=== PATIENT | male | born 1990 | race Caucasian/White ===

== ENCOUNTER 2018-12-12 05:33 | Day surgery (SDC) | payer OTHER ==
[2018-12-11 08:11] VITALS: BMI 33.2
[2018-12-12] MEDS ORDERED: HYDROmorphone 0.5 MG/0.5 ML SYRINGE ONE ×2 (06:28→06:29)
[2018-12-12] MEDS ORDERED: Fentanyl 100 MCG/2 ML VIAL ONE ×3 (06:28→09:34)
[2018-12-12 06:39] LABS: #Basophils 0.1 thou/uL (0.0-0.2); #Eosinphils 0.1 thou/uL (0.0-0.7); #Lymphocytes 1.6 thou/uL (1.20-3.40); #Monocytes 0.5 thou/uL (0.11-0.59); #Neutrophils 2.7 thou/uL (1.40-6.50); %Basophils 1.1 % (0.0-1.0); %Eosinophils 2.2 % (0.0-10.0); %Lymphocytes 33.2 % (21.0-51.0); %Monocytes 9.1 % (0.0-10.0); %Neutrophils 54.4 % (42.0-75.0); Hemoglobin 15.9 g/dL (14.0-18.0); Mean Corpuscular HGB CONC 34.4 g/dL (32.0-36.0); Mean Corpuscular Hemoglobin 33.1 pg (27.0-31.0); Mean Corpuscular Volume 96.3 fL (78.0-98.0); Mean Platelet Volume 7.1 fL (7.4-10.4); Platelet Count 186 thou/uL (130-400); RBC Distribution Width 11.3 % (11.5-14.5); Red Blood Cell (RBC) Count 4.81 mill/uL (4.70-6.10); White Blood Cell (WBC) Count 4.9 thou/uL (4.8-10.8)
[2018-12-12] MEDS ORDERED: Midazolam HCl 2 mg/2 ml Vial ONE (06:50)
[2018-12-12] MEDS ORDERED: Bupivacaine PF 0.5% 30 ML VIAL ONE (08:14)
[2018-12-12] MEDS ORDERED: HYDROcodone/Acetaminophen 5/325 mg Tablet ONE (10:38)
--- NOTE | 2018-12-12 12:23 | EKG ---
Test Reason : PREOP Blood Pressure : / mmHG Vent. Rate : 068 BPM Atrial Rate : 068 BPM P-R Int : 196 ms QRS Dur : 102 ms QT Int : 380 ms P-R-T Axes : 052 034 024 degrees QTc Int : 404 ms Normal sinus rhythm Normal ECG No previous ECGs available Confirmed by DR. Chris VANCE (3) on 12/12/2018 12:23:31 PM Referred By: RAVI Confirmed By:DR. Chris VANCE
[2018-12-12] MEDS ORDERED: Dexamethasone 20 MG/5 ML VIAL ONE (15:29)
[2018-12-12] MEDS ORDERED: Lidocaine 1% PF 5 ML VIAL ONE (15:29)
[2018-12-12] MEDS ORDERED: Ondansetron PF 4 MG/2 ML Vial ONE (15:29)
[2018-12-12] MEDS ORDERED: PROPOFOL 200 MG/20 ML VIAL ONE (15:29)
[2018-12-12] MEDS ORDERED: Ketorolac Tromethamine 30 MG/ML VIAL ONE (15:29)
--- NOTE | 2018-12-13 09:30 | OP ---
DATE OF PROCEDURE: 12/12/2018 PREOPERATIVE DIAGNOSES: 1. Right distal pole fracture. 2. Patellar tendon avulsion, distal patella. POSTOPERATIVE DIAGNOSES: 1. Right distal pole fracture. 2. Patellar tendon avulsion, distal patella. PROCEDURES PERFORMED: Open reduction and suture repair through drill holes of patellar tendon avulsion/distal pole fracture. SOLUTION SPEC: Mikie Duckworth PA-C. ANESTHESIOLOGIST: Pratik Gonzalez MD ANESTHESIA: The patient received LMA with 30 mL of Marcaine 0.5% plain. TOURNIQUET TIME: 59 minutes. ANTIBIOTICS: Ancef. COMPLICATIONS: None. HISTORY OF PRESENT ILLNESS: Mr. Ramirez is a 28-year-old male, who sustained an injury to his knee on 11/14 in [place]. The patient presented to my clinic on 12/06/2018. 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 I discussed that he had severe significant quad atrophy. I did not feel that the femoral block would be appropriate because I was concerned about the inability to recover his quad tone over time. I felt the patient would require a repair of the tendon through drill tunnels and suture repair for fixation and extension mobilizer followed by rehab in range of motion. I discussed given the patient's age, size of tear, chronicity of injury, concerned about its repair, his range of motion, and possible postoperative stiffness. I discussed risks and benefits of surgery include pain, scar, bleeding, infection, damage to vital structures, decreased range of motion and strength, need for further surgery, loss of life or limb. The patient understands risks and benefits and elected to proceed. DESCRIPTION OF PROCEDURE: Time-out was performed designating the patient's right lower extremity as operative site based on site, consents, and marking. After time-out, the patient had a midline incision down, came down through the patient 's bursa, exposed, came down on top of the tendon as well as the infrapatellar tendon, which had a small avulsion fracture as well as at the patella. We created gutters medially and laterally to find the retinaculum for exposure. After cleaning off that, we exposed there was injury of the tendon that was kind of pulled upon itself and rotated in, scarred into the fat pad. The fat pad was acting as a potential blocking, so we took the superior aspect and the inferior aspect the fat pad to help with apposition of the tendon to itself. We cleared off the tendon. We used a sharp blade and curette to both curette bone off the patella and scar off the patella to have a healthy bleeding surface. We did the same thing to the scar plane of the tendon to help with re-insertion. We then used a #5 Ethibond running in a [place]ack[place] locking loops, up and down for a total of 4 suture limbs. We took a drill bit under fluoroscopic guidance and drilled 3 holes about a centimeter apart from one another linearly on AP and lateral radiographs that showed that we were in the bone. We were drilling those, passing Suture Lasso with suture passer with a passing stitch. Upon completion of this, we passed from lateral to medial 1-1 limbs through. We then tunneled underneath the tendon to help with the suture being away and not strangulating in the superior aspect of the tendon that insert as well as bearing the knots. We then put the patient in full extension, tied our knots in position. We then cut the stitches, closed over them with #1 Vicryl, used #2 Vicryl to close with [id number] stitches in the entire retinaculum as well as oversewing the tendon repair that we have already performed. We felt we had a good overall seal, and inside the seal, we then closed the fat pad and scar layer over with 0 Vicryl, closed the subcu with 2-0 and corbin for skin. The patient will be in a knee immobilizer with the knee straight for the next 4 weeks. Work on knee extension activities. The patient will ambulate with the brace in place. We will see him back in 10 to 14 days to remove it. We will keep him 2 more weeks in the brace for a total of 4 weeks and then we will begin range of motion. Job ID: [id number] [facility]
== END 2018-12-12 12:15 | disposition home or self-care (01) ==
LOC: SDC 05:33
PROVIDERS: ATTEND Orthopaedic Surgery
PROC: 0LQQ0ZZ Repair Right Knee Tendon, Open Approach (ICD-10-PCS; principal; 2018-12-12)
DX: S76.191A Other specified injury of right quadriceps muscle, fascia and tendon, initial encounter (principal); S82.001A Unspecified fracture of right patella, initial encounter for closed fracture; I10 Essential (primary) hypertension; M19.90 Unspecified osteoarthritis, unspecified site; Z79.899 Other long term (current) drug therapy; Z87.891 Personal history of nicotine dependence; W18.42XA Slipping, tripping and stumbling without falling due to stepping into hole or opening, initial encounter
CPT/HCPCS: 36415; 76000; 85025; 93005; 93010; J0690; J1100; J1170; J1885; J2001; J2250; J2405; J2704; J3010; S0020

== ENCOUNTER 2019-08-06 07:41 | Outpatient (CLI) | payer OTHER ==
--- NOTE | 2019-08-06 09:44 | MRI ---
MRI OF RIGHT KNEE PERFORMED WITHOUT CONTRAST ENHANCEMENT: HISTORY: The patient states they had patellar tendon repair in December. Patella is now high in position. COMPARISON: None. FINDINGS: He anterior as well as posterior cruciate ligaments are intact. There is a somewhat prominent ligame nt of Bejarano incidentally noted. The medial and lateral menisci are normal in shape and appearance. The medial as well as lateral collateral ligaments are intact. Medial collateral ligament is slightl y thickened in appearance which may be the sequelae of an older injury. He patellar articular cartilage is intact. There is increased signal change near the medial patellar retinacular attachment on the patella. The lateral patellar retinaculum has a more normal appearanc e. There is a markedly abnormal thickened amorphous appearance to the proximal half of the patellar tendon with a high-grade possibly complete tear of the patellar tendon. There may be a few wispy fib ers on the medial and lateral edges of the patellar tendon that may still be intact, but there is flu id density interposed between the majority of the patellar tendon and the inferior pole of the patell a. The proximal half of the patellar tendon has a very amorphous appearance which appears to represe nt granulation tissue within a markedly thickened tendon. Distally, the tendon is thickened but has more traditional changes with patellar tendonosis. IMPRESSION: High-grade to possibly complete tear of the patellar tendon. There may be a few wispy fibers along t he medial and lateral edges that may still be intact, but the majority of the tendon is torn and mini lorrie retracted with fluid interposed between the inferior pole of the patella and the patellar tendo n which has a markedly abnormal thickened amorphous appearance. The patella is high-riding associate d with these findings. POS: [facility]
== END 2019-08-06 07:42 | disposition home or self-care (01) ==
LOC: SCSMRI 07:41
PROVIDERS: ATTEND Orthopaedic Surgery
DX: Z47.89 Encounter for other orthopedic aftercare (principal); Z98.890 Other specified postprocedural states

== ENCOUNTER 2019-08-14 06:39 | Outpatient (CLI) | payer OTHER ==
[2019-08-14 14:07] LABS: #Lymphocytes 1.6 thou/uL (1.20-3.40); #Monocytes 0.4 thou/uL (0.11-0.59); #Neutrophils 2.7 thou/uL (1.40-6.50); %Basophils 0.9 % (0.0-1.0); %Eosinophils 0.8 % (0.0-10.0); %Lymphocytes 33.4 % (21.0-51.0); %Monocytes 7.7 % (0.0-10.0); %Neutrophils 57.2 % (42.0-75.0); Hemoglobin 15.6 g/dL (14.0-18.0); Mean Corpuscular HGB CONC 33.1 g/dL (32.0-36.0); Mean Corpuscular Hemoglobin 31.8 pg (27.0-31.0); Mean Platelet Volume 7.8 fL (7.4-10.4); Platelet Count 184 thou/uL (130-400); RBC Distribution Width 11.5 % (11.5-14.5); Red Blood Cell (RBC) Count 4.92 mill/uL (4.70-6.10); White Blood Cell (WBC) Count 4.7 thou/uL (4.8-10.8)
[2019-08-15 10:55] LABS: SARS-CoV-2 MS2 Positive; SARS-CoV-2 N Gene Negative; SARS-CoV-2 S Gene Negative; SARS-CoV-2 orf1ab Negative
== END 2019-08-14 06:40 | disposition home or self-care (01) ==
LOC: LABBT 06:39
PROVIDERS: ATTEND Orthopaedic Surgery
DX: Z01.812 Encounter for preprocedural laboratory examination (principal); Z11.59 Encounter for screening for other viral diseases; S76.111A Strain of right quadriceps muscle, fascia and tendon, initial encounter
CPT/HCPCS: 85025; 87635; U0003

== ENCOUNTER 2019-08-17 10:22 | Day surgery (SDC) | payer OTHER ==
[2019-08-14 12:08] VITALS: BMI 31.6
[2019-08-17] MEDS ORDERED: Fentanyl 100 MCG/2 ML VIAL ONE ×6 (11:35→16:32)
[2019-08-17] MEDS ORDERED: Midazolam HCl 2 mg/2 ml Vial ONE ×2 (11:35→11:45)
[2019-08-17] MEDS ORDERED: PROPOFOL 200 MG/20 ML VIAL ONE (12:33)
[2019-08-17] MEDS ORDERED: Lidocaine 1% PF 5 ML VIAL ONE (12:33)
[2019-08-17] MEDS ORDERED: Ketorolac Tromethamine 30 MG/ML VIAL ONE (12:33)
[2019-08-17] MEDS ORDERED: Bupivacaine HCl 0.5%/Epinephrine 1:200,000/PF 30 ml Vial ONE (12:33)
[2019-08-17] MEDS ORDERED: Ondansetron PF 4 MG/2 ML Vial ONE (12:33)
[2019-08-17] MEDS ORDERED: HYDROcodone/Acetaminophen 5/325 mg Tablet ONE (17:16)
--- NOTE | 2019-08-19 07:01 | OP ---
DATE OF PROCEDURE: 08/17/2019 PREOPERATIVE DIAGNOSIS: Right patellar tendon re-rupture. POSTOPERATIVE DIAGNOSIS: Right patellar tendon re-rupture. PROCEDURE PERFORMED: 1. Right patellar tendon repair. 2. Application of a decellularized dermis allograft. SEED ANALYST: Aldair Mortensen MD ANESTHESIA: Carlos/Tyree. Patient received had a general LMA with a single-shot femoral block. ESTIMATED BLOOD LOSS: 100 mL. TOURNIQUET TIME: 120 minutes at 300 mmHg. ANTIBIOTICS: Ancef 2 g, vancomycin 2 g. IMPLANTS: Three Arthrex 4.75 SwiveLock, 2 Arthrex FiberTape 4.75 SwiveLock, and two 5.5 corkscrews and ArthroFlex decellularized dermis graft, one BioComposite PushLock was in and out. COMPLICATIONS: None. HISTORY OF PRESENT ILLNESS: Mr. Ramirez is a 29-year-old male, well known history, was in the [place]. The patient had a repair in the fall, came back, continued to have extensor lag and weakness. Repeat MRI showed a defect within his repair. I discussed with the patient the risks and benefits of revision with allograft to include pain, scar, bleeding, infection, damage to vital structures, stiffness, arthritis, failure of revision, fracture above or below implants, decreased range of motion and strength, blood clots, loss of life or limb. The patient understood the risks and benefits and elected to proceed. DESCRIPTION OF PROCEDURE: Time-out was performed designating the patient's right lower extremity as the operative site based on site, consents, and marking. Tourniquet was brought up and left up for a total for 120 minutes. An anterior midline incision was made down to expose the tibial tubercle and proximally to expose the patella. We created a scar plane to help with closure of our sutures in the graft. We came down on top of the tendon, found previous Ethibond stitches which we were able to remove. There was no obvious palpable defect that was felt in between the tendon. There was an area just at the distal pole of the patella that was slightly soft. We found a large area of scar which was calcified, which was excised. We also found the end portion of the fibers ---- of the tendon which we had to take up because we had a redundant tendon with the patient about 20 degrees of extension. Therefore, we took down some of the redundancy to the top of the fibers in a smiley face fashion. We created a plane on top of the tendon for help passing our sutures. After rongeuring and cleaning up the distal patella, looked on radiographs to ensure that we were at the inferior pole given the previous calcification, ossification. Being happy with that, we went off the midline of the patella between the medial and lateral facets. We had the knee flexed at 90 degrees to hold it in place. We placed 2 drill holes about 1 cm off the midline incision, which we used to drill for our 5.5 corkscrews. We tapped and placed two 5.5 corkscrew with two suture limbs. We then moved up on the lateral aspect of the patella, making skin incision, making sure we had a 45 oblique for our 4.75 FiberTapes which we drilled and tapped. We placed our 4.75 FiberTapes in position. Being happy with placement of all those anchors, we moved to pass our FiberWire through the tendon. We passed 2 limbs of each 5.5 corkscrew through the tendon, passing them down. We placed the patient with the knee locked in flexion about 20 to 30 degrees and made sure that we had as close to apposition as possible on both ends of the tendon, pulling down on the patient's patella to help hold it within the groove. We passed, we drilled and first tried a 2.9, and had to go up to a 4.75 SwiveLock, which we tapped. We ensured that we had good tension of our patellar tending, passed all 4 limbs of the FiberWire through to get our first portion of our bridge. _ we cut those limbs that had been placed right at tibial tubercle. We moved a little proximally and put obliquely 2 more drill holes, which we passed the FiberTapes that were made obliquely within the patella proximally and distally. We also placed the patient at about 30 degrees. We gave a little bit of laxity to the tapes. We ensured that we measured and backed off by the entire length of the tip of the FiberTape to ensure we did not over tension, placed our fiber tapes and cut them. Being happy with our tension, we actually went back to the central area of the tear. We used a #2 FiberWire to run and oversew the tendon to itself. We closed up a few rents that were torn during our cleaning laterally. After we had passed the 2 other limbs of both 5.5 corkscrews through the tendon to help with passage of our graft, we fanned out our graft over the patient's patellar defect and sewed it in with FiberTapes and cut those knots. We then made stitches in each corner inferiorly and superiorly to help to tension the graft over our segment where there was a little small portion of the defect. We cut all those sutures long We cycled the knee. After completion of our repair, we were able to get about 70 degrees of flexion. We did not feel any obvious palpable defect. We then washed, we let the tourniquet down right at this point. After controlling bleeding, we closed our scar plane over all of our sutures with a running 0 Vicryl, closed subcu with 2-0 Vicryl, closed the skin with Prolene. The patient received vanc at the end of the procedure, was placed in a knee immobilizer locked in extension. Will come back to my clinic next week and he will begin range of motion from 0 to 30. The patient will be followed up in clinic in a week. Will to be sent home with [place], crutches, weightbearing as tolerated on his heel. Job ID: [id number] [facility]
== END 2019-08-17 17:45 | disposition home or self-care (01) ==
LOC: SDC 10:22
PROVIDERS: ATTEND Orthopaedic Surgery
PROC: 0LUQ07Z Supplement Right Knee Tendon with Autologous Tissue Substitute, Open Approach (ICD-10-PCS; principal; 2019-08-17)
DX: S76.111A Strain of right quadriceps muscle, fascia and tendon, initial encounter (principal); I10 Essential (primary) hypertension; M19.90 Unspecified osteoarthritis, unspecified site; F17.290 Nicotine dependence, other tobacco product, uncomplicated; Z79.899 Other long term (current) drug therapy; Z98.890 Other specified postprocedural states; X58.XXXA Exposure to other specified factors, initial encounter
CPT/HCPCS: 76000; C1713; J0670; J0690; J1885; J2001; J2250; J2405; J2704; J3010; J3370